=== PATIENT | female | born 1970 | race Caucasian/White ===

== ENCOUNTER → 2021-07-15 | Outpatient (CLI) | payer BC ==
[2021-07-15 18:27] LABS: African American GFR (CKD) >90 (>60 ml/min/1.73 sqM); Blood Urea Nitrogen 24 mg/dL (7-17); Non-African American GFR(CKD) 79 (>60 ml/min/1.73 sqM)
--- NOTE | 2021-07-15 21:59 | CT ---
EXAMINATION TYPE: CT chest w con DATE OF EXAM: 07/15/2021 COMPARISON: NONE HISTORY: observation suspected mets CT DLP: 214.9 mGycm. Automated Exposure Control for Dose Reduction was Utilized. TECHNIQUE: CT scan of the thorax is performed following with IV Contrast, patient injected with 100m l mL of Isovue 300. FINDINGS: LUNGS: Dependent atelectasis. No suspicious focal consolidation. No concerning greater than 5 mm pul monary nodules or masses There is no pleural effusion or pneumothorax seen. The tracheobronchial jason e is patent. Slightly elevated left hemidiaphragm is MEDIASTINUM: Prominent but subcentimeter right hilar and subcarinal lymph nodes. Abnormal curvilinear tissue anterior superior mediastinum suspicious for enlarged thymic gland. No pericardial effusion is seen. Heart size upper limits of normal. OTHER: No additional significant abnormality is seen. IMPRESSION: No suspicious pulmonary nodules or masses. Thymus gland is abnormal in a patient this age consistent with thymic rebound, correlate clinically for etiology.
== END | disposition home or self-care (01) ==
LOC: RADCTMAIN 17:47
PROVIDERS: ATTEND Internal Medicine Hematology & Oncology
DX: C64.1 Malignant neoplasm of right kidney, except renal pelvis (principal)
CPT/HCPCS: 82565; 84520; 71260; 36415; Q9967